=== PATIENT | male | born 1995 | race Hispanic/Latino ===

== ENCOUNTER 2017-01-31 11:13 | Emergency (ER) | payer SELFPAY ==
[~2017-01-31] VITALS: Ht 162.6 cm; Wt 60.3 kg
[2017-01-31 11:14] VITALS: BP 115/66
--- NOTE | 2017-02-02 11:37 | ECGEPIP ---
Stationary ECG Study [facility] - ED Test Date: 2017-01-31 Pat Name: HAIM WHITE Department: Room: - Gender: M Senior [employer]: tk : [id number] Requested By: Latoya Heath Order Number: [id number] Reading MD: Rhianna Garcia Measurements Intervals [place] Rate: 60 P: 62 ID: 155 QRS: 94 QRSD: 105 T: 36 QT: 384 QTc: 385 Interpretive Statements SINUS RHYTHM BORDERLINE RIGHT AXIS DEVIATION INCOMPLETE RIGHT BUNDLE BRANCH BLOCK NO PRIOR FOR COMPARISON Electronically Signed On 02-02-2017 11:37:21 EDT by Rhianna Garcia
== END 2017-01-31 13:34 | disposition left against medical advice (07) ==
LOC: M ED 11:53
DX: R07.9 Chest pain, unspecified (principal); F17.200 Nicotine dependence, unspecified, uncomplicated